=== PATIENT | female | born 1975 | race Caucasian/White ===

== ENCOUNTER 2019-07-21 00:56 | Emergency (ER) | payer OTHER ==
[~2019-07-21] VITALS: Ht 162.6 cm; Wt 90.0 kg
[2019-07-21 01:57] LABS: HEMATOCRIT 39.4 % (37.0-47.0); HEMOGLOBIN 12.9 g/dl (12.0-16.0); IMMATURE GRANULOCYTES 0.4 % (0.0-5.0); MEAN CELL VOLUME 95.6 fL CALC (80.0-100.0); MEAN CORPUSCULAR HGB 31.3 pG CALC (26.0-32.0); MEAN CORPUSCULAR HGB CONC 32.7 g/L CALC (32.0-36.0); NEUT# 5.37 thou/uL (2.00-7.15); RED BLOOD COUNT 4.12 mill/uL (4.20-5.60); RED CELL DISTRI WIDTH 12.4 % (11.5-15.5)
[2019-07-21 01:58] LABS: URINE BILIRUBIN - DIPSTICK NEGATIVE (NEGATIVE); URINE BLOOD DIPSTICK NEGATIVE (NEGATIVE); URINE COLOR YELLOW; URINE GLUCOSE - DIPSTICK NEGATIVE (NEGATIVE); URINE KETONE NEGATIVE (NEGATIVE); URINE LEUK ESTERASE NEGATIVE (NEGATIVE); URINE NITRITE - DIPSTICK NEGATIVE (Negative); URINE PROTEIN - DIPSTICK NEGATIVE (NEG-TRACE); URINE SPECIFIC GRAVITY <=1.005; URINE UROBILINOGEN - DIPSTICK 0.2 E.U./dL (0.2)
[2019-07-21 02:09] LABS: ALKALINE PHOSPHATASE 70 u/l (38-126); AMYLASE 64 u/l (30-110); ANION GAP 15 (6-22 (CALC)); BILIRUBIN, TOTAL 0.5 mg/dL (0.0-1.4); BUN 11 mg/dL (7-17); BUN/CREATININE RATIO 16 (12-20 (CALC)); CARBON DIOXIDE 26 mmol/l (22-30); CHLORIDE 103 mmol/l (95-108); CREATININE 0.7 mg/dL (0.5-1.0); GFR > 60 ML/MIN (>=60 (CALC)); GFR FOR AFR.AMER. > 60 ML/MIN (>=60 (CALC)); LIPASE 336 u/l (23-300); POTASSIUM 4.1 mmol/l (3.5-5.1); SGOT/AST 22 u/l (14-36); SODIUM 141 mmol/l (137-146); TOTAL PROTEIN 8.2 g/dL (6.3-8.2)
[2019-07-21 04:50] VITALS: BP 138/78
== END 2019-07-21 04:50 | disposition home or self-care (01) | DRG 392 ==
LOC: ED 00:56
PROVIDERS: Emergency Medicine
DX: R10.30 Lower abdominal pain, unspecified (principal); R73.9 Hyperglycemia, unspecified; R74.8 Abnormal levels of other serum enzymes
CPT/HCPCS: Q9967

== ENCOUNTER 2019-11-27 | Day surgery (SDC) | payer OTHER ==
[~2019-11-27] MED LIST: ALEVE220 M2 PO; CLONAZEPAM1 M1 PO; LAMICTAL200 M1 PO; UNISOM SLEEP25 MG PO
== END 2019-11-27 09:15 | disposition home or self-care (01) | DRG 392 ==
PROC: 0DB48ZX Excision of Esophagogastric Junction, Via Natural or Artificial Opening Endoscopic, Diagnostic (ICD-10-PCS; principal; 2019-11-27)
PROC: 0DBK8ZX Excision of Ascending Colon, Via Natural or Artificial Opening Endoscopic, Diagnostic (ICD-10-PCS; 2019-11-27)
PROC: 0DBL8ZX Excision of Transverse Colon, Via Natural or Artificial Opening Endoscopic, Diagnostic (ICD-10-PCS; 2019-11-27)
DX: K21.0 Gastro-esophageal reflux disease with esophagitis (principal); D12.3 Benign neoplasm of transverse colon; D12.2 Benign neoplasm of ascending colon

== ENCOUNTER 2021-02-23 07:06 | Day surgery (SDC) | payer OTHER ==
[~2021-02-23] VITALS: Ht 162.6 cm; Wt 91.6 kg
[~2021-02-23 07:06] MED LIST changes: +ATORVASTATIN CA10 MG PO; +METFORMIN500 M2 PO
[2021-02-23] MEDS ORDERED: PERCOCET 5/325M1 TAB PO (09:10)
[2021-02-23 10:10] VITALS: BP 134/84
[2021-03-23] MEDS ORDERED: METFORMIN500 M2 PO (10:20)
[2021-03-23] MEDS ORDERED: AMOX/K CLAV875 M1 PO (10:32)
[2021-04-09] MEDS ORDERED: LISINOPRIL10 MG PO ×2 (11:47→11:49)
== END 2021-02-23 09:45 | disposition home or self-care (01) | DRG 585 ==
LOC: ORM 07:06
PROVIDERS: ATTEND Surgery
PROC: 0HBT0ZX Excision of Right Breast, Open Approach, Diagnostic (ICD-10-PCS; principal; 2021-02-23)
DX: N60.81 Other benign mammary dysplasias of right breast (principal); N60.41 Mammary duct ectasia of right breast; N60.01 Solitary cyst of right breast; F31.9 Bipolar disorder, unspecified; Z20.822 Contact with and (suspected) exposure to COVID-19

== ENCOUNTER 2021-09-17 17:28 | Emergency (ER) | payer OTHER ==
[~2021-09-17] VITALS: Ht 162.6 cm; Wt 87.7 kg
[~2021-09-17 17:28] MED LIST changes: +AMOX/K CLAV875 M1 PO; +LISINOP/HCTZ1 TA2 PO; +LISINOPRIL10 MG PO; +PERCOCET 5/325M1 TAB PO
[2021-09-17 19:41] LABS: HEMATOCRIT 35.4 % (37.0-47.0); IMMATURE GRANULOCYTES 0.2 % (0.0-5.0); MEAN CORPUSCULAR HGB 32.9 pG CALC (26.0-32.0); MEAN CORPUSCULAR HGB CONC 33.9 g/dL CAL (32.0-36.0); NEUT# 8.13 thou/uL (2.00-7.15); RED BLOOD COUNT 3.65 mill/uL (4.20-5.60); RED CELL DISTRI WIDTH 12.7 % (11.5-15.5)
[2021-09-17 19:46] LABS: ALBUMIN 4.5 g/dL (3.2-5.0); ALKALINE PHOSPHATASE 91 u/l (38-126); AMYLASE 84 u/l (30-110); ANION GAP 15 (6-22 (CALC)); BILIRUBIN, TOTAL 0.7 mg/dL (0.0-1.4); BUN 11 mg/dL (7-17); BUN/CREATININE RATIO 15 (12-20 (CALC)); CARBON DIOXIDE 25 mmol/l (22-30); CHLORIDE 102 mmol/l (95-108); CREATININE 0.7 mg/dL (0.5-1.0); GFR > 60 ML/MIN (>=60 (CALC)); GFR FOR AFR.AMER. > 60 ML/MIN (>=60 (CALC)); LIPASE 197 u/l (23-300); POTASSIUM 3.9 mmol/l (3.5-5.1); SGOT/AST 31 u/l (14-36); SODIUM 138 mmol/l (137-146); TOTAL PROTEIN 8.1 g/dL (6.3-8.2)
[2021-09-17 19:58] LABS: MYOGLOBIN 39 ng/mL (0 - 62)
[2021-09-17] MEDS ORDERED: IMODIUM2 MG PO (21:20)
[2021-09-17] MEDS ORDERED: PROMETHAZINE HY25 M1 PO (21:20)
[2021-09-17 21:40] VITALS: BP 110/58
[2021-09-21] MEDS ORDERED: DICYCLOMINE HCL20 MG PO (14:05)
== END 2021-09-17 22:05 | disposition home or self-care (01) | DRG 392 ==
LOC: ED 17:28
PROVIDERS: Emergency Medicine
DX: K52.9 Noninfective gastroenteritis and colitis, unspecified (principal); E11.9 Type 2 diabetes mellitus without complications; F31.9 Bipolar disorder, unspecified; K21.9 Gastro-esophageal reflux disease without esophagitis; Z79.84 Long term (current) use of oral hypoglycemic drugs
CPT/HCPCS: Q9967; S0164

== ENCOUNTER 2021-09-21 15:46 | Emergency (ER) | payer OTHER ==
[~2021-09-21] VITALS: Ht 162.6 cm; Wt 88.0 kg
[~2021-09-21 15:46] MED LIST changes: +DICYCLOMINE HCL20 MG PO; +IMODIUM2 MG PO; +PROMETHAZINE HY25 M1 PO
[2021-09-21 17:48] LABS: HEMATOCRIT 38.1 % (37.0-47.0); HEMOGLOBIN 12.4 g/dl (12.0-16.0); IMMATURE GRANULOCYTES 0.2 % (0.0-5.0); MEAN CELL VOLUME 98.7 fL CALC (80.0-100.0); MEAN CORPUSCULAR HGB 32.1 pG CALC (26.0-32.0); MEAN CORPUSCULAR HGB CONC 32.5 g/dL CAL (32.0-36.0); NEUT# 7.84 thou/uL (2.00-7.15); RED BLOOD COUNT 3.86 mill/uL (4.20-5.60); RED CELL DISTRI WIDTH 12.6 % (11.5-15.5)
[2021-09-21 17:49] LABS: URINE BILIRUBIN - DIPSTICK NEGATIVE (NEGATIVE); URINE BLOOD DIPSTICK NEGATIVE (NEGATIVE); URINE COLOR YELLOW; URINE GLUCOSE - DIPSTICK NEGATIVE (NEGATIVE); URINE KETONE NEGATIVE (NEGATIVE); URINE LEUK ESTERASE NEGATIVE (NEGATIVE); URINE PROTEIN - DIPSTICK NEGATIVE (NEG-TRACE); URINE SPECIFIC GRAVITY 1.015; URINE UROBILINOGEN - DIPSTICK 0.2 E.U./dL (0.2)
[2021-09-21 17:51] LABS: URINE NITRITE - DIPSTICK NEGATIVE (Negative)
[2021-09-21 18:02] LABS: ALBUMIN 4.4 g/dL (3.2-5.0); ALKALINE PHOSPHATASE 135 u/l (38-126); AMYLASE 61 u/l (30-110); ANION GAP 12 (6-22 (CALC)); BILIRUBIN, TOTAL 0.6 mg/dL (0.0-1.4); BUN 13 mg/dL (7-17); BUN/CREATININE RATIO 19 (12-20 (CALC)); CARBON DIOXIDE 31 mmol/l (22-30); CHLORIDE 100 mmol/l (95-108); CREATININE 0.7 mg/dL (0.5-1.0); GFR > 60 ML/MIN (>=60 (CALC)); GFR FOR AFR.AMER. > 60 ML/MIN (>=60 (CALC)); LIPASE 364 u/l (23-300); POTASSIUM 3.7 mmol/l (3.5-5.1); SGOT/AST 38 u/l (14-36); SODIUM 140 mmol/l (137-146); TOTAL PROTEIN 7.5 g/dL (6.3-8.2)
[2021-09-21 18:44] VITALS: BP 101/61
[2021-09-21] MEDS ORDERED: ULTRAM50 M1 PO (18:55)
[2021-09-21] MEDS ORDERED: CIPROFLOXACN500 MG PO (18:55)
== END 2021-09-21 19:20 | disposition home or self-care (01) | DRG 392 ==
LOC: ED 15:46
PROVIDERS: Emergency Medicine
DX: K52.9 Noninfective gastroenteritis and colitis, unspecified (principal); R74.8 Abnormal levels of other serum enzymes; E11.9 Type 2 diabetes mellitus without complications; F31.9 Bipolar disorder, unspecified; K21.9 Gastro-esophageal reflux disease without esophagitis; Z79.84 Long term (current) use of oral hypoglycemic drugs
CPT/HCPCS: Q9967; S0164

== ENCOUNTER 2022-03-26 12:16 | Observation (INO) | payer OTHER ==
[2022-03-26] VITALS (17 sets, daily range): BP systolic 107–151; BP diastolic 68–87
[~2022-03-26] VITALS: Ht 162.6 cm; Wt 87.0 kg
[~2022-03-26 12:16] MED LIST changes: +CIPROFLOXACN500 MG PO; +MEDDOSEPAK PO; +ULTRAM50 M1 PO
[2022-03-26 12:55] LABS: HEMOGLOBIN 12.2 g/dl (12.0-16.0); IMMATURE GRANULOCYTES 0.2 % (0.0-5.0); MEAN CELL VOLUME 94.1 fL CALC (80.0-100.0); NEUT# 4.05 thou/uL (2.00-7.15); RED BLOOD COUNT 3.93 mill/uL (4.20-5.60); RED CELL DISTRI WIDTH 12.5 % (11.5-15.5)
[2022-03-26 13:21] LABS: ALBUMIN 4.7 g/dL (3.2-5.0); ALKALINE PHOSPHATASE 68 u/l (38-126); ANION GAP 14 (6-22 (CALC)); BILIRUBIN, TOTAL 0.6 mg/dL (0.0-1.4); BUN 10 mg/dL (7-17); BUN/CREATININE RATIO 16 (12-20 (CALC)); CARBON DIOXIDE 25 mmol/l (22-30); CHLORIDE 101 mmol/l (95-108); CREATININE 0.6 mg/dL (0.5-1.0); GFR FOR AFR.AMER. > 60 ML/MIN (>=60 (CALC)); GFR OTHER RACES > 60 ML/MIN (>=60 (CALC)); POTASSIUM 3.8 mmol/l (3.5-5.1); SGOT/AST 33 u/l (14-36); SODIUM 136 mmol/l (137-146); TOTAL PROTEIN 8.1 g/dL (6.3-8.2)
[2022-03-27] VITALS (7 sets, daily range): BP systolic 108–116; BP diastolic 62–73
[2022-03-27 06:45] LABS: HEMATOCRIT 37.1 % (37.0-47.0); MEAN CELL VOLUME 97.4 fL CALC (80.0-100.0); MEAN CORPUSCULAR HGB 31.5 pG CALC (26.0-32.0); MEAN CORPUSCULAR HGB CONC 32.3 g/dL CAL (32.0-36.0); RED BLOOD COUNT 3.81 mill/uL (4.20-5.60); RED CELL DISTRI WIDTH 12.6 % (11.5-15.5)
[2022-03-27 06:59] LABS: ANION GAP 14 (6-22 (CALC)); BUN 11 mg/dL (7-17); BUN/CREATININE RATIO 18 (12-20 (CALC)); CALCULATED LDLCHOLESTEROL 163 mg/dL (62-129 (CALC)); CARBON DIOXIDE 25 mmol/l (22-30); CHLORIDE 102 mmol/l (95-108); CHOLESTEROL HDL RATIO 5.5 (<4.4 (CALC)); CREATININE 0.6 mg/dL (0.5-1.0); GFR FOR AFR.AMER. > 60 ML/MIN (>=60 (CALC)); GFR OTHER RACES > 60 ML/MIN (>=60 (CALC)); HDL CHOLESTEROL 44 mg/dL (>=40); MAGNESIUM 1.8 mg/dL (1.6-2.3); POTASSIUM 4.1 mmol/l (3.5-5.1); SODIUM 137 mmol/l (137-146); TOTAL CHOLESTEROL 242 mg/dl (0-199); TOTAL TRIGLYCERIDES 175 mg/dl (30-149); VLDL CHOLESTROL 35 mg/dl (1-41 (CALC))
[2022-03-29] MEDS ORDERED: OMEPRAZOLE DR20 MG PO (16:15)
== END 2022-03-27 11:52 | disposition home or self-care (01) | DRG 313 ==
LOC: ED 12:16 → ED-I 15:13 → ED 15:33 → MS2 15:34
PROVIDERS: Family Medicine; ADMIT Hospitalist; ATTEND Hospitalist
DX: R07.2 Precordial pain (principal); I10 Essential (primary) hypertension; E11.9 Type 2 diabetes mellitus without complications; K21.9 Gastro-esophageal reflux disease without esophagitis; E78.5 Hyperlipidemia, unspecified; F31.9 Bipolar disorder, unspecified; M79.7 Fibromyalgia; Z79.84 Long term (current) use of oral hypoglycemic drugs; Z20.822 Contact with and (suspected) exposure to COVID-19
CPT/HCPCS: G0378

== ENCOUNTER 2023-11-08 07:21 | Day surgery (SDC) | payer OTHER ==
[~2023-11-08] VITALS: Ht 162.6 cm; Wt 77.1 kg
[~2023-11-08 07:21] MED LIST changes: +METFORMIN HCL500 M1 PO; +METFORMIN HCL500 M2 PO; +OMEPRAZOLE DR20 MG PO; +OMEPRAZOLE DR40 MG PO; +OMEPRAZOLE20 MG PO; +OZEMPIC; +PRALUENT75 MG IJ; +REPATHA PU420 MG/3.5 SC; +REPATHA140 MG/ML SC; +TRILIPIX45 MG PO
[2023-11-08] MEDS ORDERED: SODIUM CHLORIDE 0.9% 1,000 ML IV ONE (07:26)
[2023-11-08] MEDS ORDERED: FAMOTIDINE 10MG/ML 2ML SDV IV ONE (07:40)
[2023-11-08 09:22] VITALS: BP 109/69
[2023-11-08] MEDS ORDERED: STERILE WATER FOR IRRIGATION 1,000 ML BTL IR ONE (10:59)
[2023-11-08] MEDS ORDERED: PROPOFOL 500 MG/50 ML VIAL IV ONE (16:40)
[2023-11-08] MEDS ORDERED: LIDOCAINE HCL 2% 2ML SDV IV ONE (16:40)
== END 2023-11-08 09:28 | disposition home or self-care (01) | DRG 392 ==
LOC: ENDO 07:21 → ORM 09:30
PROVIDERS: ATTEND Surgery
PROC: 0DB68ZX Excision of Stomach, Via Natural or Artificial Opening Endoscopic, Diagnostic (ICD-10-PCS; principal; 2023-11-08)
DX: K29.70 Gastritis, unspecified, without bleeding (principal); K44.9 Diaphragmatic hernia without obstruction or gangrene; E11.9 Type 2 diabetes mellitus without complications; Z79.84 Long term (current) use of oral hypoglycemic drugs; Z79.899 Other long term (current) drug therapy

== ENCOUNTER 2024-12-05 08:35 | Emergency (ER) | payer OTHER ==
[~2024-12-05] VITALS: Ht 162.6 cm; Wt 78.0 kg
[~2024-12-05 08:35] MED LIST changes: +MOUNJARO5 M1 SC
[2024-12-05] MEDS ORDERED: ONDANSETRON HCl 4 MG/2 ML SDV IV ONE (09:05)
[2024-12-05] MEDS ORDERED: SODIUM CHLORIDE 0.9% 1,000 ML IV ONE ×2 (09:05→10:25)
[2024-12-05 09:33] LABS: BASO% 0.2 % (0-3); HEMOGLOBIN 12.6 g/dl (12.0-16.0); IMMATURE GRANULOCYTES 0.4 % (0.0-5.0); LYMPH% 16.7 % (15-41); MEAN CELL VOLUME 95.4 fL CALC (80.0-100.0); MEAN CORPUSCULAR HGB 32.5 pG CALC (26.0-32.0); MEAN CORPUSCULAR HGB CONC 34.1 g/dL CAL (32.0-36.0); MONO% 13.6 % (2-13); NEUT# 3.55 thou/uL (2.00-7.15); NEUT% 68.1 % (42-76); RED BLOOD COUNT 3.88 mill/uL (4.20-5.60); RED CELL DISTRI WIDTH 12.6 % (11.5-15.5)
[2024-12-05 09:33] LABS: URINE BLOOD DIPSTICK Negative (NEGATIVE); URINE GLUCOSE - DIPSTICK Negative (NEGATIVE); URINE KETONE Negative (NEGATIVE); URINE LEUK ESTERASE Negative (NEGATIVE); URINE NITRITE - DIPSTICK Negative (Negative); URINE PROTEIN - DIPSTICK 30 mg/dL (NEG-TRACE); URINE SPECIFIC GRAVITY 1.025
[2024-12-05 09:40] LABS: ALBUMIN 4.1 g/dL (3.2-5.0); CREATININE 0.8 mg/dL (0.5-1.0); TOTAL PROTEIN 6.7 g/dL (6.3-8.2)
[2024-12-05 09:48] LABS: BILIRUBIN, TOTAL 1.6 mg/dL (0.02-1.3); POTASSIUM 2.9 mmol/l (3.5-5.1)
[2024-12-05 09:52] LABS: URINE COLOR Dark yellow
[2024-12-05 09:54] LABS: URINE RBC 0-2 RBC/hpf (0-5); URINE SQUAMOUS EPITHELIAL CELL MODERATE EPI/hpf (0-FEW)
[2024-12-05 09:55] LABS: URINE MUCUS FEW hpf (NONE-FEW)
[2024-12-05 09:56] LABS: URINE HYALINE CAST FEW lpf (NONE-RARE)
[2024-12-05] MEDS ORDERED: PROMETHAZINE HCL 25 MG/ML AMP IM ONE (10:30)
[2024-12-05 11:30] VITALS: BP 125/72
[2024-12-05 12:00] VITALS: BP 107/68
[2024-12-05] MEDS ORDERED: PROMETHAZINE HY25 M1 PO (12:06)
[2024-12-05] MEDS ORDERED: ZOFRAN4 MG/TAB PO (12:06)
[2024-12-05] MEDS ORDERED: K-TAB20 MEQ PO (12:07)
[2024-12-05 12:30] VITALS: BP 95/63
== END 2024-12-05 12:40 | disposition home or self-care (01) | DRG 392 ==
LOC: ED 08:35
PROVIDERS: Family Medicine
DX: A08.11 Acute gastroenteropathy due to Norwalk agent (principal); E11.9 Type 2 diabetes mellitus without complications; F31.9 Bipolar disorder, unspecified; K21.9 Gastro-esophageal reflux disease without esophagitis; E78.00 Pure hypercholesterolemia, unspecified; Z20.822 Contact with and (suspected) exposure to COVID-19
CPT/HCPCS: J2405; J2550

== ENCOUNTER 2024-12-25 07:02 | Day surgery (SDC) | payer OTHER ==
[~2024-12-25] VITALS: Ht 162.6 cm; Wt 78.9 kg
[~2024-12-25 07:02] MED LIST changes: +K-TAB20 MEQ PO; +ZOFRAN4 MG/TAB PO
[2024-12-25] MEDS ORDERED: SODIUM CHLORIDE 0.9% 1,000 ML IV ONE (07:04)
[2024-12-25] MEDS ORDERED: STERILE WATER FOR IRRIGATION 1,000 ML BTL IR ONE (09:09)
[2024-12-25 09:28] VITALS: BP 117/79
[2024-12-25] MEDS ORDERED: GLYCOPYRROLATE 0.2 MG/ML IV ONE (11:05)
[2024-12-25] MEDS ORDERED: PROPOFOL 200 MG/20 ML VIAL IV ONE (11:05)
[2024-12-25] MEDS ORDERED: LIDOCAINE HCL 2% 2ML SDV IV ONE (11:05)
== END 2024-12-25 09:18 | disposition home or self-care (01) | DRG 951 ==
LOC: ENDO 07:02
PROVIDERS: ATTEND Surgery
PROC: 0DJD8ZZ Inspection of Lower Intestinal Tract, Via Natural or Artificial Opening Endoscopic (ICD-10-PCS; principal; 2024-12-25)
DX: Z12.11 Encounter for screening for malignant neoplasm of colon (principal); K64.8 Other hemorrhoids; E11.9 Type 2 diabetes mellitus without complications; F31.9 Bipolar disorder, unspecified; E78.5 Hyperlipidemia, unspecified; K21.9 Gastro-esophageal reflux disease without esophagitis; Z86.0100 Personal history of colon polyps, unspecified; Z79.85 Long-term (current) use of injectable non-insulin antidiabetic drugs
CPT/HCPCS: J1596